=== PATIENT | male | born 1985 | race Caucasian/White ===

== ENCOUNTER 2025-06-03 17:37 | Emergency (ER) | payer OTHER ==
[~2025-06-03 17:37] MED LIST: Iopamidol 370 76% 100 ML VIAL ONE
[2025-06-03] MEDS ORDERED: Ondansetron PF 4 MG/2 ML Vial ONE (18:09)
[2025-06-03 18:14] LABS: %Eosinophils 4.6 % (0.0-6.0); %Lymphocytes 30.3 % (18.0-47.0); %Monocytes 6.3 % (0.0-10.0); %Neutrophils 58.2 % (40.0-75.0); Hematocrit 42.6 % (38.8-50.0); Hemoglobin 14.5 g/dL (13.5-17.5); Mean Corpuscular Hemoglobin 28.3 pg (27.0-33.0); Mean Corpuscular Volume 83.2 fL (81.2-95.1); Platelet Count 311 10x3/uL (150-450); Red Blood Cell (RBC) Count 5.12 10x6/uL (4.32-5.72); White Blood Cell (WBC) Count 12.70 10x3/uL (3.5-10.5)
[2025-06-03 18:15] LABS: #Basophils 0.04 10x3/uL (0.0-0.2); #Eosinophils 0.59 10x3/uL (0.0-0.5); #Monocytes 0.80 10x3/uL (0.0-1.1); #Neutrophils 7.38 10x3/uL (1.5-8.4); %Basophils 0.3 % (0.0-2.0)
[2025-06-03 18:27] LABS: INR-International Normal Ratio 1.0; PTT 23.3 sec (22.0-33.0); Prothrombin Time 11.3 sec (9.5-12.1)
[2025-06-03 18:30] LABS: ALT (SGPT) 18 U/L (Less than 45); AST (SGOT) 19 U/L (11-34); Albumin 4.1 g/dL (3.1-4.5); Alkaline Phosphatase 86 U/L (40-110); Anion Gap 15 mmol/L (10-20); BUN (Urea Nitrogen) 15 mg/dL (8.9-20.6); Bilirubin, Total 0.4 mg/dL (0.3-1.2); Calc. Creatinine Clearance 0 mL/min (70-130); Calcium 9.2 mg/dL (7.8-10.44); Carbon Dioxide 23 mmol/L (22-29); Chloride 105 mmol/L (98-107); Globulin 4.4 g/dL (2.4-3.5); Glucose 106 mg/dL (70-105); Magnesium 1.6 mg/dL (1.6-2.6); Potassium 4.0 mmol/L (3.5-5.1); Sodium 139 mmol/L (136-145)
[2025-06-03 18:33] LABS: Troponin I Less than 0.010 ng/mL (< 0.028)
== END 2025-06-03 21:00 | disposition home or self-care (01) ==
LOC: CSHERS 17:37
DX: R42 Dizziness and giddiness (principal); R29.700 NIHSS score 0; F17.200 Nicotine dependence, unspecified, uncomplicated
CPT/HCPCS: 70496; 70498; 71045; 80053; 83735; 83880; 84443; 84484; 85025; 85610; 85730; 93005; 96361; 96374; J2405